=== PATIENT | female | born 1955 | race Caucasian/White ===

== ENCOUNTER 2022-03-23 07:41 | Outpatient (CLI) | payer OTHER ==
[2022-03-23] MEDS ORDERED: ZEGERID 40 MG1 EACH PO (13:48)
[2022-03-23] MEDS ORDERED: TENORMIN50 M1 PO (13:48)
== END 2022-03-23 09:12 | disposition home or self-care (01) ==
LOC: LAB 07:41
PROVIDERS: ATTEND Orthopaedic Surgery Sports Medicine
DX: Z01.810 Encounter for preprocedural cardiovascular examination (principal); D68.9 Coagulation defect, unspecified

== ENCOUNTER 2022-03-23 08:45 | Inpatient (IN) | payer OTHER ==
[~2022-03-23] VITALS: Ht 160 cm; Wt 102.1 kg
[2022-03-23] MEDS ORDERED: TENORMIN50 M1 PO (13:48)
[2022-03-23] MEDS ORDERED: ZEGERID 40 MG1 EACH PO (13:48)
[2022-03-28] MEDS ORDERED: SIMVASTATIN40 MG (07:58)
[2022-03-28] MEDS ORDERED: LOSARTAN POTASS25 MG (07:58)
[2022-03-28] MEDS ORDERED: OMEPRAZOLE40 MG (07:58)
[2022-03-30] MEDS ORDERED: BACTRIM DS TAB1 EACH PO (06:35)
[2022-03-30] MEDS ORDERED: INTEGRA PLUS C1 EACH PO (06:35)
[2022-03-30] MEDS ORDERED: OXYC1TAB9 PO (06:35)
[2022-03-30] MEDS ORDERED: XARELTO10 MG PO (06:35)
== END 2022-03-30 15:01 | DRG 470 ==
LOC: EDUNIT# 08:45 → SURH 03-28 05:53 → O/R 03-28 05:53 → SURH 03-28 07:00
PROVIDERS: ADMIT Orthopaedic Surgery Sports Medicine; ATTEND Orthopaedic Surgery Sports Medicine
PROC: 0SRC0JZ Replacement of Right Knee Joint with Synthetic Substitute, Open Approach (ICD-10-PCS; principal; 2022-03-28 07:00)
DX: M17.11 Unilateral primary osteoarthritis, right knee (principal); Z20.822 Contact with and (suspected) exposure to COVID-19